=== PATIENT | female | born 1995 | race Caucasian/White ===

== ENCOUNTER 2017-10-11 20:52 | Emergency (ER) | payer OTHER ==
[2017-10-11] MEDS ORDERED: IBUPROFEN 600 MG TABLET ONE (21:09)
[2017-10-11 21:45] LABS: APPEARANCE,URINE CLOUDY (CLEAR); BILIRUBIN,URINE SMALL (NEGATIVE); COLOR,URINE YELLOW (YELLOW); GLUCOSE, URINE (UA) NEGATIVE (NEGATIVE); KETONES,URINE 5 mg/dL (NEGATIVE); LEUKOCYTE ESTERASE ,URINE TRACE (NEGATIVE); NITRATE,URINE POSITIVE (NEGATIVE); OCCULT BLOOD,URINE MODERATE (NEGATIVE); PROTEIN,URINE 100 (NEGATIVE)
[2017-10-11 21:57] LABS: RAPID GROUP A STREP POSITIVE (NEGATIVE)
[2017-10-11 22:02] LABS: HCG,QUAL RESULT NEGATIVE (NEGATIVE)
[2017-10-11 22:13] LABS: BACTERIA,URINE Moderate /HPF (None Seen); SQUAMOUS EPITHELIAL CELL,UR Moderate /HPF (0-2)
[2017-10-11 22:14] LABS: MUCUS,URINE Rare LPF (None Seen)
== END 2017-10-11 22:11 | disposition home or self-care (01) ==
LOC: EDH 20:52
DX: J02.0 Streptococcal pharyngitis (principal); N39.0 Urinary tract infection, site not specified; E03.9 Hypothyroidism, unspecified; Z72.0 Tobacco use; Z88.8 Allergy status to other drugs, medicaments and biological substances
CPT/HCPCS: 81001; 81025; 87804; 87880

== ENCOUNTER 2017-10-19 18:31 | Emergency (ER) | payer OTHER ==
[2017-10-19] MEDS ORDERED: ACETAMINOPHEN EXTRA STRENGTH 500 MG TABLET ONE (18:51)
[2017-10-19 19:41] LABS: APPEARANCE,URINE Clear (CLEAR); BILIRUBIN,URINE Negative (NEGATIVE); COLOR,URINE Dark Yellow (YELLOW); GLUCOSE, URINE (UA) Negative (NEGATIVE); KETONES,URINE Negative (NEGATIVE); LEUKOCYTE ESTERASE ,URINE Negative (NEGATIVE); NITRATE,URINE Negative (NEGATIVE); OCCULT BLOOD,URINE Negative (NEGATIVE); PROTEIN,URINE Trace (NEGATIVE)
[2017-10-19 19:44] LABS: HCG,QUAL RESULT NEGATIVE (NEGATIVE)
[2017-10-19] MEDS ORDERED: IBUPROFEN 600 MG TABLET ONE (19:57)
[2017-10-19 20:08] LABS: RAPID GROUP A STREP POSITIVE (NEGATIVE)
[2017-10-19] MEDS ORDERED: PENICILLIN G BENZATHINE LA 1.2 MILUNITS/2 ML SYG ONE (20:30)
== END 2017-10-19 20:48 | disposition home or self-care (01) ==
LOC: EDH 18:31
DX: J02.0 Streptococcal pharyngitis (principal); E03.9 Hypothyroidism, unspecified; Z72.0 Tobacco use
CPT/HCPCS: 81003; 81025; 87804 ×2; 87880; 96372; 99284; J0561